=== PATIENT | male | born 1980 | race Caucasian/White ===

== ENCOUNTER 2021-04-21 09:13 | Emergency (ER) | payer OTHER ==
[~2021-04-21] VITALS: Ht 182.9 cm; Wt 95.3 kg
[2021-04-21 09:24] VITALS: BP_SYST 137
[2021-04-21] MEDS ORDERED: KETOROLAC TROMETHAMINE 60 MG/2 ML VIAL IM ONE (09:30)
[2021-04-21] MEDS ORDERED: IBUP-1971 PO (10:16)
[2021-04-21] MEDS ORDERED: HYDR-3917 PO (10:16)
[2021-04-21 10:49] VITALS: BP_SYST 137
== END 2021-04-21 10:50 | disposition home or self-care (01) ==
LOC: SED 09:13
DX: S43.102A Unspecified dislocation of left acromioclavicular joint, initial encounter (principal); V00.131A Fall from skateboard, initial encounter; Y93.51 Activity, roller skating (inline) and skateboarding; Y92.89 Other specified places as the place of occurrence of the external cause; Y99.8 Other external cause status
CPT/HCPCS: 29105; 73030; 96372; 99283; J1885; J7120